=== PATIENT | male | born 1980 | race Caucasian/White ===

== ENCOUNTER 2021-09-28 09:09 | Emergency (ER) | payer BC ==
[~2021-09-28] VITALS: Ht 193 cm; Wt 95.3 kg
[2021-09-28 09:15] VITALS: BP 123/76
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
--- NOTE | 2021-09-28 09:16 | NUR ---
AT BED SIDE
== END 2021-09-28 09:26 | disposition home or self-care (01) ==
LOC: ER 09:11
DX: S13.4XXA Sprain of ligaments of cervical spine, initial encounter (principal); Z60.2 Problems related to living alone; V49.9XXA Car occupant (driver) (passenger) injured in unspecified traffic accident, initial encounter; Y93.89 Activity, other specified; Y92.89 Other specified places as the place of occurrence of the external cause; Y99.8 Other external cause status